=== PATIENT | female | born 1945 | race Two or more races ===

== ENCOUNTER 2022-01-15 10:07 | Inpatient (IN) | payer MEDICARE, OTHER ==
[~2022-01-15] VITALS: Ht 152.4 cm; Wt 64.0 kg
[2022-01-15] MEDS ORDERED: HYDROcodone-ACET 5/325MG TAB PO ONE (11:45)
[2022-01-15] MEDS ORDERED: DICYCLOMINE HCL 10 MG CAP PO ONE (11:45)
[2022-01-15] MEDS ORDERED: cefTRIAXone 1GM/50ML D5W 50 ML IV ONE (14:30)
[2022-01-15 15:22] LABS: Basophils # (auto) 0 10 ^3/uL (0-0.2); Basophils % (auto) 0.7 % (0.0-2.0); Eosinophils # (auto) 0 10 ^3/uL (0-0.8); Eosinophils % (auto) 0.4 % (0.0-7.0); Hematocrit 39.5 % (36.0-46.0); Hemoglobin 13.3 g/dL (12.2-16.2); Lymphocytes # (auto) 1.3 10 ^3/uL (0.4-5.4); Lymphocytes % (auto) 25.5 % (10.0-50.0); Mean Corpuscular Hemoglobin 28.9 pg (28.0-32.0); Mean Corpuscular Hgb Conc. 33.8 g/dL (32.0-36.0); Mean Corpuscular Volume 85.5 fL (80.0-100.0); Monocytes # (auto) 0.5 10 ^3/uL (0-1.3); Monocytes % (auto) 9.9 % (0.0-12.0); Neutrophils # (auto) 3.1 10 ^3/uL (1.6-8.6); Neutrophils % (auto) 63.5 % (37.0-80.0); Red Blood Cells 4.61 10^6/uL (4.0-5.20); Red Cell Distribution Width 13.6 % (11.8-14.3)
[2022-01-15 15:38] LABS: Albumin 3.9 g/dL (3.4-5.0); Calcium 9.1 mg/dL (8.5-10.1); Potassium 3.9 mmol/L (3.5-5.1)
[2022-01-15 15:41] LABS: BUN/Creatinine Ratio 16.4; Bilirubin, Total 0.6 mg/dL (0.2-1.0); Total Protein 7.7 g/dL (6.4-8.2)
[2022-01-15 15:51] LABS: INR 0.99 (0.9-1.15); Partial Thromboplastin Time 30.9 sec (24.6-33.4)
[2022-01-15] MEDS ORDERED: DEXTROSE (50%) 50ML SYRG IV PRN (18:45)
[2022-01-15] MEDS ORDERED: DOCUSATE SOD 100 MG CAP PO PRN (18:45)
[2022-01-15] MEDS ORDERED: HYDROmorphone HCL 2 MG/ML VL/or syr IV PRN (18:45)
[2022-01-15] MEDS ORDERED: ONDANSETRON HCL 4 MG/2 ML VIAL IV PRN (18:45)
[2022-01-15] MEDS ORDERED: SODIUM CHLORIDE 0.9% 1,000 ML IV ONE ×2 (18:45)
[2022-01-15] MEDS: HYDROcodone-ACET 5/325MG TAB PO PRN (23:07)
[2022-01-16] MEDS: PIPERACILLIN-TAZOB 3.375GM 100 ML IV SCH ×3 (00:30→07:09)
[2022-01-16] MEDS: InsuLIN REG 1unit/0.01ml Soln (100units/ml) SC SCH ×2 (04:27)
[2022-01-16] MEDS: ACCU-CHEK COMFORT CURVE STRIP VI SCH ×2 (04:49)
[2022-01-16 05:00] VITALS: BP 147/69
[2022-01-16 07:06] VITALS: BP 123/62
[2022-01-16 08:43] VITALS: BP 109/60
[2022-01-16] MEDS ORDERED: MORPHINE SULFATE INJ 2 MG/ml SYRG IV PRN (10:30)
[2022-01-16 12:30] VITALS: BP 132/60
[2022-01-16 12:30] LABS: Urine Bacteria FEW /hpf (None Seen); Urine Blood Negative /uL (Negative); Urine Specific Gravity 1.014 (1.001-1.035); Urine WBC 10 /hpf (0 - 5)
[2022-01-16] MEDS: SODIUM CHLORIDE 0.9% 1,000 ML IV SCH ×2 (12:44→23:50)
[2022-01-16] MEDS: metroNIDAZOLE 500MG/100ML 100 ML IV SCH ×2 (14:45→22:45)
[2022-01-16] MEDS: cefTRIAXone 1GM/50ML D5W 50 ML IV SCH (14:46)
[2022-01-16 16:40] VITALS: BP 135/65
[2022-01-16] MEDS: HYDROcodone-ACET 5/325MG TAB PO PRN (19:40)
[2022-01-16 22:00] VITALS: BP 134/67
[2022-01-17] MEDS: HYDROcodone-ACET 5/325MG TAB PO PRN ×4 (01:45→18:47)
[2022-01-17 05:00] VITALS: BP 112/64
[2022-01-17] MEDS: metroNIDAZOLE 500MG/100ML 100 ML IV SCH ×3 (05:28→21:12)
[2022-01-17 06:49] LABS: Basophils # (auto) 0 10 ^3/uL (0-0.2); Basophils % (auto) 0.8 % (0.0-2.0); Eosinophils # (auto) 0 10 ^3/uL (0-0.8); Eosinophils % (auto) 0.7 % (0.0-7.0); Hematocrit 35.2 % (36.0-46.0); Hemoglobin 12.2 g/dL (12.2-16.2); Lymphocytes # (auto) 1.4 10 ^3/uL (0.4-5.4); Lymphocytes % (auto) 27.4 % (10.0-50.0); Mean Corpuscular Hemoglobin 30.3 pg (28.0-32.0); Mean Corpuscular Hgb Conc. 34.7 g/dL (32.0-36.0); Mean Corpuscular Volume 87.2 fL (80.0-100.0); Monocytes # (auto) 0.6 10 ^3/uL (0-1.3); Monocytes % (auto) 12.1 % (0.0-12.0); Neutrophils # (auto) 2.9 10 ^3/uL (1.6-8.6); Nucleated Red Blood Cells % 0.1 %; Red Blood Cells 4.03 10^6/uL (4.0-5.20); Red Cell Distribution Width 13.7 % (11.8-14.3)
[2022-01-17 07:13] LABS: Calcium 8.2 mg/dL (8.5-10.1); Potassium 3.8 mmol/L (3.5-5.1)
[2022-01-17 07:17] LABS: BUN/Creatinine Ratio 10.7; Bilirubin, Total 0.5 mg/dL (0.2-1.0); Total Protein 6.3 g/dL (6.4-8.2)
[2022-01-17 09:01] VITALS: BP 155/74
[2022-01-17] MEDS: cefTRIAXone 1GM/50ML D5W 50 ML IV SCH (10:23)
[2022-01-17] MEDS: SODIUM CHLORIDE 0.9% 1,000 ML IV SCH (12:26)
[2022-01-17 13:00] VITALS: BP 145/80
[2022-01-17] MEDS ORDERED: IOHEXOL 300 MG/ML 100ML BOTTLE IJ ONE ×2 (14:16→14:34)
[2022-01-17 17:00] VITALS: BP 170/71
[2022-01-17] MEDS: hydrALAZINE HCL 20 MG/ML VL IV PRN (17:09)
[2022-01-17 22:00] VITALS: BP 154/69
[2022-01-18] MEDS: SODIUM CHLORIDE 0.9% 1,000 ML IV SCH ×2 (02:30→15:07)
[2022-01-18] MEDS: hydrALAZINE HCL 20 MG/ML VL IV PRN ×2 (04:16→20:33)
[2022-01-18 05:00] VITALS: BP 157/64
[2022-01-18] MEDS: metroNIDAZOLE 500MG/100ML 100 ML IV SCH ×3 (05:53→21:22)
[2022-01-18 06:52] LABS: Basophils # (auto) 0 10 ^3/uL (0-0.2); Basophils % (auto) 0.7 % (0.0-2.0); Eosinophils # (auto) 0 10 ^3/uL (0-0.8); Eosinophils % (auto) 0.1 % (0.0-7.0); Hematocrit 38.9 % (36.0-46.0); Hemoglobin 12.8 g/dL (12.2-16.2); Lymphocytes # (auto) 0.8 10 ^3/uL (0.4-5.4); Lymphocytes % (auto) 13.1 % (10.0-50.0); Mean Corpuscular Hemoglobin 29.5 pg (28.0-32.0); Mean Corpuscular Volume 89.3 fL (80.0-100.0); Monocytes # (auto) 0.5 10 ^3/uL (0-1.3); Monocytes % (auto) 8.3 % (0.0-12.0); Neutrophils # (auto) 4.7 10 ^3/uL (1.6-8.6); Neutrophils % (auto) 77.8 % (37.0-80.0); Nucleated Red Blood Cells % 0.2 %; Red Blood Cells 4.35 10^6/uL (4.0-5.20); Red Cell Distribution Width 13.7 % (11.8-14.3)
[2022-01-18 07:10] LABS: Albumin 3.2 g/dL (3.4-5.0); Calcium 8.6 mg/dL (8.5-10.1); Potassium 3.5 mmol/L (3.5-5.1)
[2022-01-18 07:13] LABS: BUN/Creatinine Ratio 8.9
[2022-01-18 07:16] LABS: Bilirubin, Total 0.4 mg/dL (0.2-1.0); Total Protein 6.5 g/dL (6.4-8.2)
[2022-01-18 07:30] VITALS: BP 173/77
[2022-01-18] MEDS: cefTRIAXone 1GM/50ML D5W 50 ML IV SCH (08:44)
[2022-01-18 09:00] VITALS: BP 147/73
[2022-01-18 12:30] VITALS: BP 149/74
[2022-01-18 17:02] VITALS: BP 151/79
[2022-01-18 22:00] VITALS: BP 149/70
[2022-01-19] VITALS (7 sets, daily range): BP systolic 146–180; BP diastolic 56–82
[2022-01-19] MEDS: hydrALAZINE HCL 20 MG/ML VL IV PRN ×3 (03:56→21:20)
[2022-01-19] MEDS: SODIUM CHLORIDE 0.9% 1,000 ML IV SCH (04:04)
[2022-01-19] MEDS: HYDROcodone-ACET 5/325MG TAB PO PRN ×2 (04:04→21:47)
[2022-01-19] MEDS: metroNIDAZOLE 500MG/100ML 100 ML IV SCH ×3 (05:53→21:20)
[2022-01-19] MEDS: cefTRIAXone 1GM/50ML D5W 50 ML IV SCH (08:34)
[2022-01-19] MEDS: ACETAMINOPHEN 325 MG TAB PO PRN (16:11)
[2022-01-20 01:48] LABS: INR 1.04 (0.9-1.15)
[2022-01-20 05:00] VITALS: BP 165/78
[2022-01-20] MEDS: hydrALAZINE HCL 20 MG/ML VL IV PRN ×3 (05:24→22:30)
[2022-01-20] MEDS: metroNIDAZOLE 500MG/100ML 100 ML IV SCH ×3 (05:24→22:29)
[2022-01-20] MEDS: HYDROcodone-ACET 5/325MG TAB PO PRN ×2 (06:36→16:52)
[2022-01-20 09:00] VITALS: BP 147/63
[2022-01-20] MEDS: cefTRIAXone 1GM/50ML D5W 50 ML IV SCH ×2 (09:30→18:33)
[2022-01-20 13:00] VITALS: BP 161/80
[2022-01-20 17:00] VITALS: BP 159/79
[2022-01-20] MEDS ORDERED: BUPIVACAINE 0.25% INJ 50ML VIAL ONE (17:38)
[2022-01-20] MEDS ORDERED: MIDAZOLAM HCL 2MG/2ML 2ml VIAL (1mg/ml) ONE (18:37)
[2022-01-20] MEDS ORDERED: fentaNYL CITRATE 100 MCG/2 ML VL ONE (18:37)
[2022-01-20] MEDS ORDERED: ROCURONIUM 10MG/ML 10ML VIAL IV ONE (18:37)
[2022-01-20] MEDS ORDERED: LIDOCAINE 2% (LOCAL ANESTH.) PF 5ml SDV ONE (18:44)
[2022-01-20] MEDS ORDERED: ONDANSETRON HCL 4 MG/2 ML VIAL ONE (18:44)
[2022-01-20] MEDS ORDERED: PROPOFOL 10 MG/ML 20 ML IV ONE (20:02)
[2022-01-20] MEDS ORDERED: GLYCOPYRROLATE 0.2 MG/ML 1ML VIAL ONE (20:02)
[2022-01-20] MEDS ORDERED: NEOSTIGMINE 1 MG/ML INJ (10mg/10ML VIAL) ONE (20:03)
[2022-01-20] MEDS ORDERED: HYDROmorphone HCL 2 MG/ML VL/or syr IV PRN ×2 (20:15)
[2022-01-20] MEDS ORDERED: ONDANSETRON HCL 4 MG/2 ML VIAL IV PRN (20:15)
[2022-01-20] MEDS ORDERED: LABETALOL HCL 5 MG/ML 4ML SYRINGE IV ONE ×2 (20:25→20:30)
[2022-01-20 22:00] VITALS: BP 174/92
[2022-01-21 05:00] VITALS: BP 109/59
[2022-01-21] MEDS: metroNIDAZOLE 500MG/100ML 100 ML IV SCH ×3 (05:22→22:30)
[2022-01-21 05:52] LABS: Basophils # (auto) 0 10 ^3/uL (0-0.2); Basophils % (auto) 0.5 % (0.0-2.0); Eosinophils # (auto) 0 10 ^3/uL (0-0.8); Eosinophils % (auto) 0.1 % (0.0-7.0); Hematocrit 37.8 % (36.0-46.0); Hemoglobin 12.8 g/dL (12.2-16.2); Lymphocytes # (auto) 1.2 10 ^3/uL (0.4-5.4); Lymphocytes % (auto) 14.2 % (10.0-50.0); Mean Corpuscular Hemoglobin 29.4 pg (28.0-32.0); Mean Corpuscular Volume 86.4 fL (80.0-100.0); Monocytes # (auto) 0.7 10 ^3/uL (0-1.3); Monocytes % (auto) 8.7 % (0.0-12.0); Neutrophils # (auto) 6.4 10 ^3/uL (1.6-8.6); Neutrophils % (auto) 76.5 % (37.0-80.0); Nucleated Red Blood Cells % 0.1 %; Red Blood Cells 4.37 10^6/uL (4.0-5.20); Red Cell Distribution Width 14.6 % (11.8-14.3); White Blood Cell 8.3 10^3/uL (4.4-10.8)
[2022-01-21 06:08] LABS: Albumin 3.2 g/dL (3.4-5.0); Calcium 8.7 mg/dL (8.5-10.1)
[2022-01-21 06:11] LABS: BUN/Creatinine Ratio 18.8
[2022-01-21 06:13] LABS: Bilirubin, Total 0.5 mg/dL (0.2-1.0); Total Protein 6.3 g/dL (6.4-8.2)
[2022-01-21 06:31] LABS: Potassium 2.9 mmol/L (3.5-5.1)
[2022-01-21] MEDS ORDERED: POTASSIUM CHL 20 Meq TABLET PO ONE (06:45)
[2022-01-21] MEDS ORDERED: HYDR25TA4 PO (08:35)
[2022-01-21] MEDS ORDERED: NEBI5TAB2 PO (08:35)
[2022-01-21] MEDS ORDERED: URSO300C9 PO (08:35)
[2022-01-21] MEDS ORDERED: ROSU10TA16 PO (08:35)
[2022-01-21] MEDS: cefTRIAXone 1GM/50ML D5W 50 ML IV SCH (08:54)
[2022-01-21 09:00] VITALS: BP 150/63
[2022-01-21] MEDS ORDERED: POTASSIUM CHLORIDE 40 MEQ, LIDOCAINE 1% (LOCAL ANESTH.) 4 ML in SODIUM CHL 0.9% 250 ML IV ONE (11:00)
[2022-01-21] MEDS ORDERED: METOPROLOL TARTRATE 25 MG TAB PO ONE (11:00)
[2022-01-21 13:04] VITALS: BP 144/68
[2022-01-21 17:15] VITALS: BP 154/75
[2022-01-21 22:00] VITALS: BP 169/74
[2022-01-21] MEDS: METOPROLOL TARTRATE 25 MG TAB PO SCH (22:30)
[2022-01-21] MEDS: hydrALAZINE HCL 20 MG/ML VL IV PRN (22:30)
[2022-01-22] MEDS: ACETAMINOPHEN 325 MG TAB PO PRN (04:20)
[2022-01-22 05:00] VITALS: BP 160/68
[2022-01-22 05:30] VITALS: BP 139/54
[2022-01-22] MEDS: metroNIDAZOLE 500MG/100ML 100 ML IV SCH ×2 (06:00→13:45)
[2022-01-22 06:18] LABS: Basophils # (auto) 0 10 ^3/uL (0-0.2); Basophils % (auto) 0.9 % (0.0-2.0); Eosinophils # (auto) 0 10 ^3/uL (0-0.8); Eosinophils % (auto) 0.5 % (0.0-7.0); Hematocrit 35.5 % (36.0-46.0); Hemoglobin 12.1 g/dL (12.2-16.2); Lymphocytes # (auto) 1.2 10 ^3/uL (0.4-5.4); Lymphocytes % (auto) 21.6 % (10.0-50.0); Mean Corpuscular Hemoglobin 29.5 pg (28.0-32.0); Mean Corpuscular Volume 86.7 fL (80.0-100.0); Monocytes # (auto) 0.5 10 ^3/uL (0-1.3); Monocytes % (auto) 9.1 % (0.0-12.0); Neutrophils # (auto) 3.7 10 ^3/uL (1.6-8.6); Neutrophils % (auto) 67.9 % (37.0-80.0); Red Blood Cells 4.09 10^6/uL (4.0-5.20); Red Cell Distribution Width 14.6 % (11.8-14.3); White Blood Cell 5.5 10^3/uL (4.4-10.8)
[2022-01-22 06:41] LABS: Potassium 3.5 mmol/L (3.5-5.1)
[2022-01-22 06:47] LABS: Albumin 3.2 g/dL (3.4-5.0); BUN/Creatinine Ratio 28.6; Calcium 8.6 mg/dL (8.5-10.1)
[2022-01-22 06:49] LABS: Bilirubin, Total 0.5 mg/dL (0.2-1.0); Total Protein 6.2 g/dL (6.4-8.2)
[2022-01-22 08:35] VITALS: BP 163/78
[2022-01-22] MEDS: cefTRIAXone 1GM/50ML D5W 50 ML IV SCH (09:03)
[2022-01-22] MEDS: METOPROLOL TARTRATE 25 MG TAB PO SCH (09:04)
[2022-01-22 12:25] VITALS: BP 147/66
[2022-01-22] MEDS ORDERED: FUROSEMIDE 20 MG/2 ML VIAL IV ONE (12:45)
[2022-01-22] MEDS ORDERED: POTASSIUM CHL 20 Meq TABLET PO ONE (12:45)
[2022-01-22 13:51] VITALS: BP 147/66
== END 2022-01-22 15:50 | disposition home or self-care (01) | DRG 417 ==
LOC: ER 10:07 → TELE 18:36 → TELE-WESTW 01-16 03:13
PROVIDERS: ADMIT Internal Medicine; ATTEND Internal Medicine
PROC: 0DTJ4ZZ Resection of Appendix, Percutaneous Endoscopic Approach (ICD-10-PCS; 2022-01-20)
PROC: 0FT44ZZ Resection of Gallbladder, Percutaneous Endoscopic Approach (ICD-10-PCS; principal; 2022-01-20 18:36)
DX: K80.01 Calculus of gallbladder with acute cholecystitis with obstruction (principal); K65.1 Peritoneal abscess; E87.1 Hypo-osmolality and hyponatremia; N39.0 Urinary tract infection, site not specified; R16.0 Hepatomegaly, not elsewhere classified; D18.03 Hemangioma of intra-abdominal structures; K82.8 Other specified diseases of gallbladder; E78.00 Pure hypercholesterolemia, unspecified; E87.6 Hypokalemia; I10 Essential (primary) hypertension; Z82.49 Family history of ischemic heart disease and other diseases of the circulatory system
CPT/HCPCS: 36415; 71045; 74176; 74178; 74181; 76705; 78226; 80053; 81001; 82150; 83690; 84484; 85025; 85610; 85730; 86850; 86900; 86901; 87040; 87086; 93005; G0378; J0696; J2001; J2250; J2405; J2543; J2704; J3490

== ENCOUNTER → 2022-02-03 | Outpatient (CLI) | payer MEDICARE, OTHER ==
[~2022-02-03] MED LIST: HYDR25TA4 PO; NEBI5TAB2 PO; ROSU10TA16 PO; URSO300C9 PO
[2022-02-03 14:01] LABS: Albumin 3.2 g/dL (3.4-5.0); Calcium 8.9 mg/dL (8.5-10.1); Potassium 3.6 mmol/L (3.5-5.1)
[2022-02-03 14:06] LABS: BUN/Creatinine Ratio 10.9; Basophils # (auto) 0.1 10 ^3/uL (0-0.2); Basophils % (auto) 1.4 % (0.0-2.0); Bilirubin, Total 0.3 mg/dL (0.2-1.0); Eosinophils # (auto) 0.1 10 ^3/uL (0-0.8); Eosinophils % (auto) 1.2 % (0.0-7.0); Hematocrit 35.5 % (36.0-46.0); Hemoglobin 11.5 g/dL (12.2-16.2); Lymphocytes # (auto) 1.6 10 ^3/uL (0.4-5.4); Lymphocytes % (auto) 32.5 % (10.0-50.0); Mean Corpuscular Hemoglobin 28.4 pg (28.0-32.0); Mean Corpuscular Hgb Conc. 32.5 g/dL (32.0-36.0); Mean Corpuscular Volume 87.4 fL (80.0-100.0); Monocytes # (auto) 0.4 10 ^3/uL (0-1.3); Monocytes % (auto) 8.2 % (0.0-12.0); Neutrophils # (auto) 2.8 10 ^3/uL (1.6-8.6); Neutrophils % (auto) 56.7 % (37.0-80.0); Red Blood Cells 4.06 10^6/uL (4.0-5.20); Red Cell Distribution Width 14.2 % (11.8-14.3); Total Protein 6.8 g/dL (6.4-8.2); White Blood Cell 4.9 10^3/uL (4.4-10.8)
== END | disposition home or self-care (01) ==
LOC: LAB 13:11
PROVIDERS: ATTEND Internal Medicine
DX: I11.0 Hypertensive heart disease with heart failure (principal); R10.11 Right upper quadrant pain; Z90.49 Acquired absence of other specified parts of digestive tract
CPT/HCPCS: 36415; 80053; 83880; 85025; 85652

== ENCOUNTER → 2022-04-02 | Outpatient (CLI) | payer MEDICARE, OTHER | END | disposition home or self-care (01) | LOC: LAB 11:29 | PROVIDERS: ATTEND Internal Medicine | DX: I10 Essential (primary) hypertension (principal); D50.9 Iron deficiency anemia, unspecified | CPT/HCPCS: 36415; 84132; 84439; 84443 ==

== ENCOUNTER → 2022-05-12 | Outpatient (CLI) | payer MEDICARE, OTHER ==
[2022-05-12 12:18] LABS: Basophils # (auto) 0.1 10 ^3/uL (0-0.2); Eosinophils # (auto) 0.1 10 ^3/uL (0-0.8); Eosinophils % (auto) 1.2 % (0.0-7.0); Hematocrit 39.4 % (36.0-46.0); Hemoglobin 13.4 g/dL (12.2-16.2); Lymphocytes # (auto) 1.6 10 ^3/uL (0.4-5.4); Lymphocytes % (auto) 28.4 % (10.0-50.0); Mean Corpuscular Hemoglobin 29.6 pg (28.0-32.0); Mean Corpuscular Volume 86.8 fL (80.0-100.0); Monocytes # (auto) 0.5 10 ^3/uL (0-1.3); Neutrophils # (auto) 3.3 10 ^3/uL (1.6-8.6); Neutrophils % (auto) 60.4 % (37.0-80.0); Nucleated Red Blood Cells % 0.1 %; Red Blood Cells 4.54 10^6/uL (4.0-5.20); Red Cell Distribution Width 13.7 % (11.8-14.3); White Blood Cell 5.5 10^3/uL (4.4-10.8)
[2022-05-12 12:43] LABS: Potassium 3.8 mmol/L (3.5-5.1)
== END | disposition home or self-care (01) ==
LOC: LAB 11:26
PROVIDERS: ATTEND Internal Medicine
DX: I10 Essential (primary) hypertension (principal); D64.9 Anemia, unspecified
CPT/HCPCS: 36415; 80061; 83540; 84132; 85025

== ENCOUNTER → 2023-02-17 | Outpatient (CLI) | payer MEDICARE, OTHER ==
[~2023-02-17] MED LIST changes: +URSO300C2 PO; -URSO300C9 PO
[2023-02-17 09:49] LABS: Basophils # (auto) 0.1 10 ^3/uL (0-0.2); Basophils % (auto) 1.2 % (0.0-2.0); Eosinophils # (auto) 0.1 10 ^3/uL (0-0.8); Eosinophils % (auto) 1.4 % (0.0-7.0); Hematocrit 37.7 % (36.0-46.0); Hemoglobin 13.2 g/dL (12.2-16.2); Lymphocytes # (auto) 1.4 10 ^3/uL (0.4-5.4); Lymphocytes % (auto) 30.1 % (10.0-50.0); Mean Corpuscular Hemoglobin 30.2 pg (28.0-32.0); Mean Corpuscular Hgb Conc. 35.1 g/dL (32.0-36.0); Mean Corpuscular Volume 86.1 fL (80.0-100.0); Monocytes # (auto) 0.4 10 ^3/uL (0-1.3); Neutrophils # (auto) 2.7 10 ^3/uL (1.6-8.6); Neutrophils % (auto) 58.3 % (37.0-80.0); Nucleated Red Blood Cells % 0.2 %; Red Blood Cells 4.37 10^6/uL (4.0-5.20); Red Cell Distribution Width 13.6 % (11.8-14.3); White Blood Cell 4.7 10^3/uL (4.4-10.8)
[2023-02-17 10:23] LABS: Albumin 3.7 g/dL (3.4-5.0); Calcium 8.7 mg/dL (8.5-10.1)
[2023-02-17 10:29] LABS: BUN/Creatinine Ratio 12.1 (10.0-20.0); Bilirubin, Total 0.6 mg/dL (0.2-1.0)
[2023-02-17 10:38] LABS: Erythrocyte Sedimentation Rate 9 mm/hr (0-20)
[2023-02-17 11:29] LABS: Urine Bacteria NONE SEEN /hpf (None Seen); Urine Blood Negative /uL (Negative); Urine Clarity Clear (Clear); Urine Color Yellow (Yellow); Urine Protein, UAD Negative (Negative); Urine Specific Gravity 1.007 (1.001-1.035); Urine Urobilinogen Normal (Negative); Urine WBC <1 /hpf (0 - 5); Urine pH 5.5 (5.0-8.0)
== END | disposition home or self-care (01) ==
LOC: LAB 09:20
PROVIDERS: ATTEND Internal Medicine
DX: I10 Essential (primary) hypertension (principal); E78.5 Hyperlipidemia, unspecified
CPT/HCPCS: 36415; 80053; 80061; 81001; 84439; 84443; 85025; 85652

== ENCOUNTER → 2023-10-22 | Outpatient (CLI) | payer OTHER ==
[2023-10-22 13:34] LABS: Basophils # (auto) 0.1 10 ^3/uL (0-0.2); Basophils % (auto) 1.7 % (0.0-2.0); Eosinophils # (auto) 0.1 10 ^3/uL (0-0.8); Eosinophils % (auto) 1.3 % (0.0-7.0); Hematocrit 37.2 % (36.0-46.0); Hemoglobin 12.8 g/dL (12.2-16.2); Lymphocytes # (auto) 1.8 10 ^3/uL (0.4-5.4); Lymphocytes % (auto) 34.8 % (10.0-50.0); Mean Corpuscular Hemoglobin 30.9 pg (28.0-32.0); Mean Corpuscular Hgb Conc. 34.5 g/dL (32.0-36.0); Mean Corpuscular Volume 89.5 fL (80.0-100.0); Monocytes # (auto) 0.5 10 ^3/uL (0-1.3); Monocytes % (auto) 8.9 % (0.0-12.0); Neutrophils # (auto) 2.7 10 ^3/uL (1.6-8.6); Neutrophils % (auto) 53.3 % (37.0-80.0); Red Blood Cells 4.16 10^6/uL (4.0-5.20); Red Cell Distribution Width 14.2 % (11.8-14.3); White Blood Cell 5.1 10^3/uL (4.4-10.8)
[2023-10-22 13:51] LABS: Alanine Aminotransferase 21 U/L (7-40); Albumin 4.2 g/dL (3.2-4.8); Alkaline Phosphatase 49 U/L (46-116); Anion Gap 7 (5-15); Aspartate Aminotransferase 18 U/L (13-40); BUN/Creatinine Ratio 22.2 (10.0-20.0); Blood Urea Nitrogen 14 mg/dL (9-23); Calcium 9.7 mg/dL (8.5-10.1); Carbon Dioxide 28 mmol/L (20-30); Chloride 102 mmol/L (98-107); Glucose 76 mg/dL (74-106); Sodium 137 mmol/L (136-145)
[2023-10-22 13:52] LABS: Bilirubin, Total 0.5 mg/dL (0.2-1.0); Total Protein 6.4 g/dL (5.7-8.2)
== END | disposition home or self-care (01) ==
LOC: LAB 13:19
PROVIDERS: ATTEND Internal Medicine
DX: I10 Essential (primary) hypertension (principal); E87.1 Hypo-osmolality and hyponatremia; E78.5 Hyperlipidemia, unspecified
CPT/HCPCS: 36415; 80053; 85025

== ENCOUNTER → 2023-12-15 | Outpatient (CLI) | payer OTHER | END | disposition home or self-care (01) | LOC: XYW 08:25 | PROVIDERS: ATTEND Internal Medicine | DX: I51.89 Other ill-defined heart diseases (principal); R60.9 Edema, unspecified | CPT/HCPCS: 93306 ==

== ENCOUNTER → 2024-04-07 | Outpatient (CLI) | payer OTHER ==
[~2024-04-07] MED LIST changes: +NEBI5TAB10 PO; -NEBI5TAB2 PO
[2024-04-07 13:11] LABS: Urine Bacteria None Seen /hpf (None Seen)
[2024-04-07 13:52] LABS: Urine Blood Negative /uL (Negative); Urine Clarity Clear (Clear); Urine Color Light-Yellow (Yellow); Urine Protein, UAD Negative (Negative); Urine Specific Gravity 1.012 (1.001-1.035); Urine Urobilinogen Normal (Negative); Urine WBC 2 /hpf (0 - 5); Urine pH 7.5 (5.0-9.0)
[2024-04-07 13:54] LABS: Basophils # (auto) 0.1 10 ^3/uL (0-0.2); Basophils % (auto) 1.2 % (0.0-2.0); Eosinophils # (auto) 0.1 10 ^3/uL (0-0.8); Eosinophils % (auto) 1.2 % (0.0-7.0); Hematocrit 39.2 % (36.0-46.0); Hemoglobin 13.9 g/dL (12.2-16.2); Lymphocytes % (auto) 36.5 % (10.0-50.0); Mean Corpuscular Hemoglobin 31.2 pg (28.0-32.0); Mean Corpuscular Hgb Conc. 35.4 g/dL (32.0-36.0); Mean Corpuscular Volume 87.9 fL (80.0-100.0); Monocytes # (auto) 0.4 10 ^3/uL (0-1.3); Monocytes % (auto) 7.1 % (0.0-12.0); Neutrophils # (auto) 2.9 10 ^3/uL (1.6-8.6); Platelet Count (auto) 239 10^3/uL (140-450); Red Blood Cells 4.45 10^6/uL (4.0-5.20); Red Cell Distribution Width 14.2 % (11.8-14.3); White Blood Cell 5.4 10^3/uL (4.4-10.8)
[2024-04-07 14:10] LABS: Alanine Aminotransferase 20 U/L (7-40); Albumin 4.7 g/dL (3.2-4.8); Alkaline Phosphatase 44 U/L (46-116); Anion Gap 6 (5-15); Aspartate Aminotransferase 14 U/L (13-40); BUN/Creatinine Ratio 18.3 (10.0-20.0); Bilirubin, Total 0.7 mg/dL (0.2-1.0); Blood Urea Nitrogen 13 mg/dL (9-23); Calcium 10.4 mg/dL (8.7-10.4); Carbon Dioxide 30 mmol/L (20-31); Chloride 101 mmol/L (98-107); Cholesterol 149 mg/dL (< 200); Glucose 91 mg/dL (74-106); HDL Cholesterol 51 mg/dL (40-59); LDL Cholesterol 80 mg/dL (< 100); Potassium 3.8 mmol/L (3.5-5.1); Sodium 137 mmol/L (136-145); Triglycerides 99 mg/dL (< 150)
[2024-04-07 14:11] LABS: Total Protein 7.2 g/dL (5.7-8.2)
[2024-04-07 15:20] LABS: Erythrocyte Sedimentation Rate 11 mm/hr (0-20)
== END | disposition home or self-care (01) ==
LOC: LAB 12:05
PROVIDERS: ATTEND Internal Medicine
DX: I10 Essential (primary) hypertension (principal); Z98.890 Other specified postprocedural states
CPT/HCPCS: 36415; 80053; 80061; 81001; 83735; 84439; 84443; 85025; 85652

== ENCOUNTER → 2024-09-21 | Outpatient (CLI) | payer OTHER ==
[2024-09-21 15:34] LABS: Basophils # (auto) 0.1 10 ^3/uL (0-0.2); Basophils % (auto) 1.3 % (0.0-2.0); Eosinophils # (auto) 0.1 10 ^3/uL (0-0.8); Eosinophils % (auto) 1.5 % (0.0-7.0); Lymphocytes # (auto) 1.5 10 ^3/uL (0.4-5.4); Lymphocytes % (auto) 24.8 % (10.0-50.0); Mean Corpuscular Hemoglobin 30.3 pg (28.0-32.0); Mean Corpuscular Hgb Conc. 34.9 g/dL (32.0-36.0); Mean Corpuscular Volume 86.9 fL (80.0-100.0); Monocytes # (auto) 0.4 10 ^3/uL (0-1.3); Monocytes % (auto) 6.5 % (0.0-12.0); Neutrophils # (auto) 3.9 10 ^3/uL (1.6-8.6); Neutrophils % (auto) 65.9 % (37.0-80.0); Nucleated Red Blood Cells % 0.1 %; Platelet Count (auto) 231 10^3/uL (140-450); Red Blood Cells 4.61 10^6/uL (4.0-5.20); Red Cell Distribution Width 13.5 % (11.8-14.3); White Blood Cell 5.9 10^3/uL (4.4-10.8)
[2024-09-21 16:10] LABS: Erythrocyte Sedimentation Rate 14 mm/hr (0-20)
[2024-09-21 16:12] LABS: Alanine Aminotransferase 24 U/L (7-40); Alkaline Phosphatase 54 U/L (46-116); Anion Gap 5 (5-15); Aspartate Aminotransferase 20 U/L (13-40); BUN/Creatinine Ratio 29.6 (10.0-20.0); Bilirubin, Total 0.5 mg/dL (0.2-1.0); Blood Urea Nitrogen 16 mg/dL (9-23); Calcium 10.4 mg/dL (8.7-10.4); Carbon Dioxide 27 mmol/L (20-31); Chloride 100 mmol/L (98-107); Glucose 96 mg/dL (74-106); Potassium 3.6 mmol/L (3.5-5.1); Total Protein 7.5 g/dL (5.7-8.2); Uric Acid 6.6 mg/dL (3.1-7.8)
[2024-09-21 16:13] LABS: Albumin 4.9 g/dL (3.2-4.8); Sodium 132 mmol/L (136-145)
[2024-09-22 08:07] LABS: Complement C3 125 mg/dL (82-167); Rheumatoid Arthritis Factor <10.0 IU/mL (<14.0)
[2024-09-22 11:07] LABS: Thyroid Peroxidase (TPO) Ab <9 IU/mL (0-34)
[2024-09-22 15:07] LABS: Anti-Nuclear Antibody Direct Negative (Negative); Anti-dsDNA Antibody 8 IU/mL (0-9); Antiscleroderma-70 Antibody <0.2 AI (0.0-0.9); RNP Antibody 0.5 AI (0.0-0.9); Sjogren's Anti-SS-A Antibody <0.2 AI (0.0-0.9); Sjogren's Anti-SS-B Antibody <0.2 AI (0.0-0.9); Smith Antibody <0.2 AI (0.0-0.9)
== END | disposition home or self-care (01) ==
LOC: LAB 14:45
PROVIDERS: ATTEND Internal Medicine
DX: I10 Essential (primary) hypertension (principal); M25.549 Pain in joints of unspecified hand
CPT/HCPCS: 36415; 80053; 84439; 84443; 84550; 85025; 85652; 86160; 86200; 86225; 86235; 86376; 86431

== ENCOUNTER 2025-04-04 12:23 | Outpatient (CLI) | payer OTHER ==
[2025-04-04 12:41] LABS: Hematocrit 38.8 % (36.0-46.0); Hemoglobin 13.5 g/dL (12.2-16.2); Mean Corpuscular Hemoglobin 30.8 pg (28.0-32.0); Mean Corpuscular Volume 88.4 fL (80.0-100.0); Nucleated Red Blood Cells % 0.1 %
[2025-04-04 13:23] LABS: Urine Protein, UAD Negative (Negative)
[2025-04-04 13:33] LABS: Alanine Aminotransferase 20 U/L (7-40); Albumin 4.6 g/dL (3.2-4.8); Alkaline Phosphatase 50 U/L (46-116); Anion Gap 7 (5-15); BUN/Creatinine Ratio 16.9 (10.0-20.0); Blood Urea Nitrogen 11 mg/dL (9-23); Calcium 9.6 mg/dL (8.7-10.4); Carbon Dioxide 30 mmol/L (20-31); Chloride 99 mmol/L (98-107); Cholesterol 157 mg/dL (< 200); Glucose 95 mg/dL (74-106); HDL Cholesterol 58 mg/dL (40-59); Potassium 4.0 mmol/L (3.5-5.1); Sodium 136 mmol/L (136-145); Total Protein 7.4 g/dL (5.7-8.2); Triglycerides 91 mg/dL (< 150)
[2025-04-04 13:34] LABS: Bilirubin, Total 0.8 mg/dL (0.2-1.0)
== END 2025-04-04 17:00 | disposition home or self-care (01) ==
LOC: LAB 12:23
PROVIDERS: ATTEND Internal Medicine
DX: I10 Essential (primary) hypertension (principal)
CPT/HCPCS: 36415; 80053; 80061; 81001; 84439; 84443; 85025; 85652